=== PATIENT | male | born 1960 | race Caucasian/White ===

== ENCOUNTER → 2021-11-27 10:44 | Outpatient (BNVA) | payer OTHER, SELFPAY | PROVIDERS: PCP Internal Medicine; Visit Provider Urology | DX: N52.9 Male erectile dysfunction, unspecified (principal) | CPT/HCPCS: 99212 ==

== ENCOUNTER → 2022-11-29 10:40 | Outpatient (BNVA) | payer OTHER, SELFPAY | PROVIDERS: PCP Internal Medicine; Visit Provider Urology | DX: N52.9 Male erectile dysfunction, unspecified (principal); Z15.01 Genetic susceptibility to malignant neoplasm of breast; Z15.09 Genetic susceptibility to other malignant neoplasm | CPT/HCPCS: 99212 ==

== ENCOUNTER 2024-02-18 13:03 | Outpatient (AMB) | payer OTHER, SELFPAY ==
--- NOTE | 2024-02-18 13:20 | MHC.OFFVIS ---
Intake Visit Reasons: 1Y PSA(set 1.1)confirmed Intake Note: Patient is Present for Follow Up Urology Medication: Patient states that is not taking his Tadalafil Antibiotic Allergies: Penicillins Blood Thinners: none Allergies Penicillins [PENICILLINS] Allergy (Mild, Verified 02/18/24 13:22) RASH penicillin V Allergy (Unknown, Verified 02/18/24 13:22) Unknown Medication List - Last Reconciled 02/18/24 by Ayden Hale MD albuterol sulfate 90 mcg/actuation 0 mcg inhalation ferrous sulfate 325 mg PO TID fluticasone propion-salmeterol 250-50 mcg/dose (Wixela Inhub) 1 ea inhalation BID tadalafil 20 mg PO .PRN 30 days temazepam 7.5 mg PO BEDTIME PRN HPI Comments Details: Geovanni Das is a very pleasant male. He is a patient of Dr Adams. He is seen for the following urologic conditions. - BRCA1 positive - PSA 10/13 0.7 - erectile dysfunction Yearly follow-up PSA remains in target JARRETT normal Continue as needed Cialis Family history BRCA1 positive PSA has not been checked for a couple years - adult daughter recently had bilateral mastectomy age 38 PSA 01/17 1.1 Repeat PSA yearly Erectile dysfunction Borderline erectile dysfunction Discussed requirement for sleep Good response to Cialis 20 mg as needed Review of Systems Const Denies chills and Denies fever(s) Card Reports no additional complaints and Denies syncope Resp Denies cough GI Denies abdominal pain and Denies heartburn Reports as per HPI and Denies change in libido Neuro Denies syncope Psych Denies change in libido Endo Denies change in libido Physical Exam Const General: cooperative, healthy appearing, comfortable and no acute distress Orientation/consciousness: patient oriented x3 HEENT Face and sinus: Yes normal facial exam Mouth: moist mucous membranes Neck Neck: Yes normal visual inspection, Yes full ROM and Yes trachea midline Chest Chest palpation & inspection: normal inspection of the chest Resp Effort & Inspection: normal respiratory effort, able to speak in complete sentences and no respiratory distress GI Inspection: Yes normal to inspection Rectal Exam - Male: Yes normal sphincter tone and Yes prostate normal Male General Exam: Yes normal external exam Penis: normal penis and circumcised Meatus: meatus normal Scrotum: scrotum normal Testes: Testes normal Back/Spine/Pelvis Cervical Spine: normal cervical lordosis Thoracic/Lumbar Spine: thoracic and lumbar spine normal to inspection Skin General skin exam: no rashes or lesions noted Neuro General: patient oriented x3, gait normal, tone normal and moves all extremities Extrem General: Yes normal to inspection and Yes capillary refill normal Assessment & Plan Assessment & Plan (1) BRCA gene mutation test positive: Code(s): Z15.01 - Genetic susceptibility to malignant neoplasm of breast; Z15.09 - Genetic susceptibility to other malignant neoplasm Category: Medical (2) Erectile dysfunction: Code(s): N52.9 - Male erectile dysfunction, unspecified Category: Medical Plan Yearly follow-up PSA Orders: Orders Prostate Specific Antigen 364 Days Z15.01 - Genetic susceptibility to malignant neoplasm of breast, Z15.09 - Genetic susceptibility to other malignant neoplasm Patient Instructions: Imaging studies, laboratory and physical exam results were discussed and reviewed in detail. No major barriers to patient understanding were identified. An opportunity to ask questions regarding the treatment plan was provided. All questions were answered. The patient expressed understanding and agreement with the above treatment plan. The patient is aware they should contact our office by phone for worsening of their current condition or the appearance of new urologic symptoms. Compliance is encouraged with any medications and followup testing that is ordered. It is a privilege to participate in the urologic care of your patient. If you have any questions or concerns regarding treatment for the above conditions, or other urologic issues, please do not hesitate to contact me. The office telephone contact is [phone]. This note is constructed using voice recognition software. While every effort has been made to ensure accuracy employer relations representative errors may have been included. Yours sincerely, Dr Ayden Hale MD, LIZZETH [facility] - Urology Providers of Expert, Compassionate Care for the Genitourinary System Coding Level of Care Code Est Pt Level 4 (35362) Diagnoses BRCA gene mutation test positive Z15.01; Z15.09 Erectile dysfunction N52.9
== END 2024-02-18 14:08 | disposition home or self-care (01) ==
PROVIDERS: PCP Internal Medicine; Visit Provider Urology
DX: N52.9 Male erectile dysfunction, unspecified (principal); Z15.01 Genetic susceptibility to malignant neoplasm of breast
CPT/HCPCS: 99213

== ENCOUNTER → 2024-02-18 13:03 | Outpatient (BNVA) | payer OTHER, SELFPAY | PROVIDERS: PCP Internal Medicine; Visit Provider Urology | DX: Z15.01 Genetic susceptibility to malignant neoplasm of breast (principal); Z15.09 Genetic susceptibility to other malignant neoplasm; N52.9 Male erectile dysfunction, unspecified | CPT/HCPCS: 99212 ==

== ENCOUNTER 2025-02-17 14:04 | Outpatient (REF) | payer OTHER, SELFPAY | END 2025-02-17 14:05 | disposition home or self-care (01) | LOC: HO.HMGCLDS 14:04 | PROVIDERS: PCP Internal Medicine; Visit Provider Urology | DX: Z15.01 Genetic susceptibility to malignant neoplasm of breast (principal); Z15.09 Genetic susceptibility to other malignant neoplasm | CPT/HCPCS: 36415; 84153 ==

== ENCOUNTER 2025-02-22 10:02 | Outpatient (AMB) | payer OTHER, SELFPAY ==
--- NOTE | 2025-02-22 10:02 | A.OFFVIS_ITS ---
Intake Visit Reasons: 1y/PSA(PSA?) Intake Note: Patient is Present for 1Y Follow Up/PSA Urology Medication: Tadalafil Antibiotic Allergies: Penicillins Blood Thinners: none Day Worker Required: No Allergies Penicillins [PENICILLINS] Allergy (Mild, Verified 02/22/25 10:03) RASH penicillin V Allergy (Unknown, Verified 02/22/25 10:03) Unknown HPI Comments Details: Geovanni Das is a very pleasant male. He is a patient of Dr Adams. He is seen for the following urologic conditions. - BRCA1 positive - PSA 10/13 0.7 - erectile dysfunction Telemedicine Evaluation 15 min Consultation [facility] Karlos Video PSA remains stable Refill Cialis uses as needed with good effect Family history BRCA1 positive PSA has not been checked for a couple years - adult daughter recently had bilateral mastectomy age 38 PSA 01/17 1.1. 02/18 1.2 Repeat PSA yearly Erectile dysfunction Borderline erectile dysfunction Discussed requirement for sleep Good response to Cialis 20 mg as needed Review of Systems Const All systems reviewed & are unremarkable except as noted in HPI and below Reports no additional complaints Resp Reports no additional complaints GI Reports no additional complaints Reports as per HPI Musc Reports no additional complaints Physical Exam Telemedicine evaluation Appropriate responses Regular breathing rate and rhythm HEENT Head: Yes normal to inspection Ears: hearing grossly normal bilaterally Eyes General: appearance normal, both eyes and all related structures Neck Neck: Yes normal visual inspection Chest Chest palpation & inspection: normal inspection of the chest Resp Effort & Inspection: normal respiratory effort and able to speak in complete sentences Telehealth Telehealth Telehealth Platform: [employer] Location of provider rendering services: practice address Location of patient: address on file Patient Identification confirmed using: Name, : Yes Telehealth method: video Patient verbally consented to treatment: Yes Patient verbally consented to billing insurance company: Yes Patient informed of any privacy concerns related to visit: Yes Minutes spent on Phone/Video with Pt.: 15 Assessment & Plan Assessment & Plan (1) Erectile dysfunction: Code(s): N52.9 - Male erectile dysfunction, unspecified Category: Medical (2) BRCA gene mutation test positive: Code(s): Z15.01 - Genetic susceptibility to malignant neoplasm of breast; Z15.09 - Genetic susceptibility to other malignant neoplasm Category: Medical Plan Follow yearly PSA for BRCA gene refill tadalafil Orders: Orders Prostate Specific Antigen 12 Months Z15.01 - Genetic susceptibility to malignant neoplasm of breast, Z15.09 - Genetic susceptibility to other malignant neoplasm Medications: Changed From tadalafil 20 mg PO .PRN 30 days 30 tabs 0RF sexual activity N52.9 - Male erectile dysfunction, unspecified To tadalafil 20 mg PO ONCE PRN 30 tabs 0RF sexual activity 30 days N52.9 - Male erectile dysfunction, unspecified Patient Instructions: This note is constructed using voice recognition software. While every effort has been made to ensure accuracy web development intern errors may have been included. Imaging studies, laboratory and physical exam results were discussed and reviewed in detail. No major barriers to patient understanding were identified. An opportunity to ask questions regarding the treatment plan was provided. All questions were answered. The patient expressed understanding and agreement with the above treatment plan. The patient is aware they should contact our office by phone for worsening of their current condition or the appearance of new urologic symptoms. Compliance is encouraged with any medications and followup testing that is ordered. It is a privilege to participate in the urologic care of your patient. If you have any questions or concerns regarding treatment for the above conditions, or other urologic issues, please do not hesitate to contact me. The office telephone contact is [phone]. Sincerely, Dr Ayden Hale MD, LIZZETH [facility] - Urology Compassionate Specialist Care for the Genitourinary System Coding Level of Care Code Tele Est Pt Level 4 (69006) Complex EM visit Add On G2211 Diagnoses Erectile dysfunction N52.9 BRCA gene mutation test positive Z15.; Z15.09
--- OUTSIDE RECORDS SUMMARY | 2025-02-22 11:20 | XMS_ITS ---
Author Organization [facility] Address [address] [place] [address] Care Team Providers Care Practice Clinician Name Role Phone Bernardo Clemons Primary Care Provider REASON FOR VISIT (IN OFFICE), Follow Up Encounters Encounter Location Date Provider Diagnosis [facility] [address] [place] [address] 08/30/20 24 Bernardo Clemons PLAN OF TREATMENT No Information
--- OUTSIDE RECORDS SUMMARY | 2025-02-22 11:20 | XMS_ITS ---
Author Organization [facility] Address [address] [place] [address] Care Team Providers Care Powder Coat Painter Name Role Phone Bernardo Clemons Primary Care Provider REASON FOR VISIT (IN OFFICE), Follow Up Encounters Encounter Location Date Provider Diagnosis [facility] [address] [place] [address] 09/14/20 24 Bernardo Clemons PLAN OF TREATMENT No Information
--- OUTSIDE RECORDS SUMMARY | 2025-02-22 11:20 | XMS_ITS | Patient Health Record ---
Author Organization [facility] Address [address] [place] [address] Care Team Providers Care Director Style Name Role Phone Bernardo Clemons Primary Care Provider ALLERGIES Allergen (clinical drug ingredient) Drug/Non Drug Allergy documented on EMR Reaction Allergy Type Onset Date Status penicillin V Penicillin V Potassium Unknown Drug Allergy Active REASON FOR REFERRAL No Information MEDICATIONS Medication SIG (Take, Route, Frequency, Duration) Notes Start Date End Date Status Ferrous Sulfate 325 (65 Fe) MG 1 tablet Orally 3 times a day Active Fluticasone-Salmeterol 250-50 MCG/ACT INHALE 1 PUFF BY MOUTH TWICE DAILY. RINSE MOUTH AFTER USE for Active LORazepam 0.5 MG 1 tablet as needed O rally Twice a day Active Dapsone 100 MG 1 tablet Orally Once a day Active Vitamin D3 25 MCG (1000 UT) 1 capsule Or ally Once a day Active Temazepam 7.5 MG TAKE 1 CAPSULE BY MO UTH EVERY DAY AT BEDTIME NEEDED for 90 07/22/2024 Active Clobetasol Propionate 0.05 % APPLY TOPICALLY TO THE AFFECTED AREA TWICE DAILY Active hydrOXYzine HCl 25 MG 1 tablet as needed Orally every 8 hrs Active IMMUNIZATIONS Vaccine Route Administration Date Status Comme nts Pneumococcal IM Intramuscular 08/23/2020 Administered *Influenza (Fluarix Quad) IM Intramuscular 08/23/2020 Admi nistered *Influenza (Fluarix Quad) IM Intramuscular 08/21/2021 Admi nistered *Influenza (Fluarix Quad) IM Intramuscular 08/21/2022 Admi nistered *Influenza (Fluarix Quad) IM Intramuscular 09/15/2023 Admi nistered *Influenza (Fluarix Quad) IM Intramuscular 07/28/2024 Admi nistered SOCIAL HISTORY Tobacco Use: Social History Observation Description Date Details (start date - stop date) Former Smoker NA - NA Sex Assigned At : Social History Observation Description Sex Assigned At Unknown Tobacco Use/Smoking Question Answer Notes Are you a former smoker How long has it been since you last smoked? > 10 years Alcohol Screen Question Answer Notes Did you have a drink contain ing alcohol in the past year? Yes How often did you have a dri nk containing alcohol in the past year? 2 to 4 times a month (2 points) How many drinks did you have on a typical day when you were drinking in the past year? 1 or 2 drinks (0 point) How often did you have 6 or more drinks on one occasion in the past year? Never (0 point) Points 2 Interpretation Negative PROBLEMS Problem Type ICD Code Onset Dates Problem Status W/U Status Risk SNOMED Code Notes Problem Vitamin D deficiency (E55.9) Active confirmed 68519207 Problem Generalized anxiety disorder (F41.1) Active confirmed 15189197 Problem Primary insomnia (F51.01) Active confirmed 9144240 Problem Mild intermittent asthma without complication (J45.20) Active confirmed 423612675 Problem Iron deficiency anemia, unspecified iron deficiency anemia type (D50.9) Active confirmed 28287078 Problem Osteoarthritis of both knees, unspecified osteoarthritis type (M17.0) Active confirmed 379173331274978 Problem Acute skin eruption of discoloration, elevations, blisters (R21) Active confirmed 811508784 VITAL SIGNS Heart Rate 80 /min 07/28/2024 Blood pressure diastolic 80 mm Hg 07/28/2024 Height 69 in 07/28/2024 Blood pressure systolic 120 mm Hg 07/28/2024 Weight 194.2 lbs 07/28/2024 BMI 28.68 kg/m2 07/28/2024 Encounters Encounter Location Date Provider Diagnosis [facility] [address] [address] 04/28/2024 Bernardo Clemons [facility] [address] [address] 05/28/2024 Bernardo Clemons [facility], [address] [address] 06/14/2024 Bernardo Clemons Generalized anxiety disorder F41.1 ; Acute skin eruption of discoloration, elevations, blisters R21 ; Mild intermittent asthma without complication J45.20 ; Osteoarthritis of both knees, unspecified osteoarthritis type M17.0 ; Iron deficiency anemia, unspecified iron deficiency anemia type D50.9 and Vitamin D deficiency E55.[address] [address] 07/28/2024 Bernardo Clemons Generalized anxiety disorder F41.1 ; Acute skin eruption of discoloration, elevations, blisters R21 ; Mild intermittent asthma without complication J45.20 ; Osteoarthritis of both knees, unspecified osteoarthritis type M17.0 ; Iron deficiency anemia, unspecified iron deficiency anemia type D50.9 ; Vitamin D deficiency E55.9 and Encounter for immunization Z23 [address] [address] 08/30/2024 Bernardo [facility] [address] [address] 09/14/2024 Bernardo Clemons ASSESSMENTS Encounter Date Diagnosis Assessment Notes Treatment Notes Treatment Clinical Notes 07/28/2024 Generalized anxiety disorder (ICD-10 - F41.1) 06/14/2024 Generalized anxiety disorder (ICD-10 - F41.1) 07/28/2024 Acute skin eruption of discoloration, elevations, blisters (ICD-10 - R21) 07/28/2024 Mild intermittent asthma without complication (ICD-10 - J45.20) 06/14/2024 Acute skin eruption of discoloration, elevations, blisters (ICD-10 - R21) 06/14/2024 Mild intermittent asthma without complication (ICD-10 - J45.20) 07/28/2024 Osteoarthritis of both knees, unspecified osteoarthritis type (ICD-10 - M17.0) 07/28/2024 Iron deficiency anemia, unspecified iron deficiency anemia type (ICD-10 - D50.9) 06/14/2024 Osteoarthritis of both knees, unspecified osteoarthritis type (ICD-10 - M17.0) 07/28/2024 Vitamin D deficiency (ICD-10 - E55.9) 06/14/2024 Iron deficiency anemia, unspecified iron deficiency anemia type (ICD-10 - D50.9) 07/28/2024 Encounter for immunization (ICD-10 - Z23) 06/14/2024 Vitamin D deficiency (ICD-10 - E55.9) 06/14/2024 Other This chart has been transcribed by a computerized dictation system. There are likely to be multiple instructor correspondence school inaccuracies despite chart review. 07/28/2024 Other This chart has been transcribed by a computerized dictation system. There are likely to be multiple instructor correspondence school inaccuracies despite chart review. PLAN OF TREATMENT Pending Test Test Name Order Date *SPIROMETRY 12/08/2019 25OH VITAMIN D 10/16/2022 25OH VITAMIN D 09/15/2023 CBC (COMPLETE BLOOD COUNT) WITH DIFF CBC (COMPLETE BLOOD COUNT) WITH DIFF CBC (COMPLETE BLOOD COUNT) WITH DIFF COMPREHENSIVE METABOLIC PANEL 10/16/2022 COMPREHENSIVE METABOLIC PANEL 09/15/2023 C-REACTIVE PROTEIN 09/15/2023 FERRITIN 09/15/2023 FOLIC ACID 10/16/2022 IRON AND TIBC 10/16/2022 IRON AND TIBC 11/21/2021 LIPID PANEL 10/16/2022 LIPID PANEL 09/15/2023 PSA, SCREEN 09/15/2023 PSA, SCREEN 10/16/2022 SEDIMENTATION RATE 09/15/2023 THYROID PANEL (TSH, FT4) 10/16/2022 THYROID PANEL (TSH, FT4) 09/15/2023 URINALYSIS, COMPLETE 10/16/2022 URINALYSIS, COMPLETE 09/15/2023 VITAMIN B12 10/16/2022 Insurance Providers Payer Name Payer Address Payer Phone Subscriber Number Group Number Insured Name Patient Relationship to Insured Coverage Start Date Coverage End Date [facility] [address] [place] [address] [id number] Geovanni Das Self - patient is the insured MEDICAL (GENERAL) HISTORY Medical History History ICD Code Mild intermittent asthma without complic ation J45.20 Osteoarthritis of both knees, unspecifie d osteoarthritis type M17.0 Surgical History Surgery Date(Month/Year) Right biceps rupture repain Arthroscopic repair of left rotator cuff Surgery for left retinal detachment Arthroscopic surgery left knee Lipoma removed from right flank Hospitalization History Reason Date(Month/Year) for about procedures Procedures
--- OUTSIDE RECORDS SUMMARY | 2025-02-22 11:20 | XMS_ITS ---
Author Organization [facility] Address [address] [place] [phone] Care Team Providers Care Help Desk Operator Name Role Phone Bernardo Clemons Primary Care Provider ALLERGIES Allergen (clinical drug ingredient) Drug/Non Drug Allergy documented on EMR Reaction Allergy Type Onset Date Status penicillin V Penicillin V Potassium Unknown Drug Allergy Active REASON FOR VISIT (IN OFFICE), Follow Up MEDICATIONS Medication SIG (Take, Route, Frequency, Duration) Notes Start Date End Date Status Dapsone 100 MG 1 tablet Orally Once a day Active FLUoxetine HCl 20 MG TAKE 1 CAPSULE BY M OUTH EVERY DAY for 90 Active Albuterol Sulfate HFA 108 (90 Base) MCG/ACT INHALE 1 PUFF BY MOUTH EVERY 4 HOURS NEEDED for 33 Active Wixela Inhub 250-50 MCG/ACT INHALE 1 PUF F INTO THE LUNGS TWICE DAILY for 30 Active Temazepam 7.5 MG TAKE 1 CAPSULE BY MO UTH EVERY DAY AT BEDTIME NEEDED for 90 07/22/2024 Active LORazepam 0.5 MG 1 tablet as needed O rally Twice a day Active FLUoxetine HCl 20 MG 1 capsule Orally On ce a day for 90 Days Active Wixela Inhub 250-50 MCG/ACT INHALE 1 PUF F BY MOUTH TWICE DAILY Active Clobetasol Propionate 0.05 % APPLY TOPICALLY TO THE AFFECTED AREA TWICE DAILY Active hydrOXYzine HCl 25 MG 1 tablet as needed Orally every 8 hrs Active Albuterol Sulfate HFA 108 (90 Base) MCG/ACT INHALE 1 PUFF BY MOUTH EVERY 4 HOURS NEEDED Active Ferrous Sulfate 325 (65 Fe) MG 1 tablet Orally 3 times a day Active Vitamin D3 25 MCG (1000 UT) 1 capsule Or ally Once a day Active IMMUNIZATIONS Vaccine Route Administration Date Status Comme nts *Influenza (Fluarix Quad) IM Intramuscular 07/28/2024 Admi nistered SOCIAL HISTORY Tobacco Use: Social History Observation Description Date Details (start date - stop date) Former Smoker NA - NA Sex Assigned At : Social History Observation Description Sex Assigned At Unknown Tobacco Use/Smoking Question Answer Notes Are you a former smoker How long has it been since you last smoked? > 10 years VITAL SIGNS Blood pressure systolic 120 mm Hg 07/28/20 24 Blood pressure diastolic 80 mm Hg 024 Heart Rate 80 /min 07/28/2024 Height 69 in 07/28/2024 Weight 194.2 lbs 07/28/2024 BMI 28.68 kg/m2 07/28/2024 Encounters Encounter Location Date Provider Diagnosis [facility] [address] [address] 07/28/2024 Bernardo Clemons Generalized anxiety disorder F41.1 ; Acute skin eruption of discoloration, elevations, blisters R21 ; Mild intermittent asthma without complication J45.20 ; Osteoarthritis of both knees, unspecified osteoarthritis type M17.0 ; Iron deficiency anemia, unspecified iron deficiency anemia type D50.9 ; Vitamin D deficiency E55.9 and Encounter for immunization Z23 ASSESSMENTS Encounter Date Diagnosis Assessment Notes Treatment Notes Treatment Clinical Notes 07/28/2024 Generalized anxiety disorder (ICD-10 - F41.1) 07/28/2024 Acute skin eruption of discoloration, elevations, blisters (ICD-10 - R21) 07/28/2024 Mild intermittent asthma without complication (ICD-10 - J45.20) 07/28/2024 Osteoarthritis of both knees, unspecified osteoarthritis type (ICD-10 - M17.0) 07/28/2024 Iron deficiency anemia, unspecified iron deficiency anemia type (ICD-10 - D50.9) 07/28/2024 Vitamin D deficiency (ICD-10 - E55.9) 07/28/2024 Encounter for immunization (ICD-10 - Z23) 07/28/2024 Other This chart has been transcribed by a computerized dictation system. There are likely to be multiple risk control director inaccuracies despite chart review. PLAN OF TREATMENT Medication Medication Name Sig Start Date Stop Date Notes LORazepam 0.5 MG 1 tablet as needed O rally Twice a day FLUoxetine HCl 20 MG 1 capsule Orally On ce a day for 90 Days Wixela Inhub 250-50 MCG/ACT INHALE 1 PUF F BY MOUTH TWICE DAILY Clobetasol Propionate 0.05 % APPLY TOPIC ALLY TO THE AFFECTED AREA TWICE DAILY hydrOXYzine HCl 25 MG 1 tablet as needed Orally every 8 hrs Albuterol Sulfate HFA 108 (9 0 Base) MCG/ACT INHALE 1 PUFF BY MOUTH EVERY 4 HOURS NEEDED Ferrous Sulfate 325 (65 Fe) MG 1 tablet Orally 3 times a day Vitamin D3 25 MCG (1000 UT) 1 capsule Orally Once a day Treatment Notes Assessment Notes Other This chart has been transcribed by a computerized dictation system. There are likely to be multiple risk control director inaccuracies despite chart review. Next Appt Details Follow Up: 4 Weeks, Reason: Follow-up Progress Notes * Examination Category Sub-Category Detail Notes General Examination GENERAL APPEARANCE: in no ac dayana distress, well developed, well nourished HEAD: normocephalic, atrau matic EYES: pupils equal, round, reactive to light and accommodation THROAT: clear, no erythema, uvula midline, no exudate NECK/THYROID: neck supple, no thyr omegaly, trachea midline, no carotid bruit HEART: no murmurs, regular rate and rhythm, S1, S2 normal LUNGS: clear to auscultatio n bilaterally ABDOMEN: soft, nontender, non distended, no organomegaly , bowel sounds present NEUROLOGIC: alert and oriented x 3, nonfocal SKIN: Extensive hyperemic rash anterior chest, neck, face, which has improved to some extent since her last exam EXTREMITIES: no clubbing, cyanosi s, or edema PERIPHERAL PULSES: normal, 2+ throughou t MUSCULOSKELETAL: normal, full range o f motion LYMPH NODES: no cervical, axillar y, supraclavicular or inguinal adenopathy PSYCH: cognitive function i ntact, mood/affect full range ORAL CAVITY: mucosa moist, no les ions, palate normal, tongue in midline, well papillated
== END 2025-02-22 12:06 | disposition home or self-care (01) ==
LOC: HO.HUSH 10:02
PROVIDERS: PCP Internal Medicine; Visit Provider Urology
DX: N52.9 Male erectile dysfunction, unspecified (principal); Z15.01 Genetic susceptibility to malignant neoplasm of breast
CPT/HCPCS: 99214; G2211